=== PATIENT | female | born 1965 | race Caucasian/White ===

== ENCOUNTER → 2025-08-10 | Outpatient (CLI) | payer BC, SELFPAY ==
--- NOTE | 2025-08-10 17:14 | RAD_ITS ---
PROCEDURE: CERV SPINE 4 OR 5 VIEWS 08/10/2025 REASON FOR EXAM: RIGHT SIDED PAIN X 2 DAYS TECHNIQUE: Procedure Code: [facility] Modality: DX Procedure: CERV SPINE 4 OR 5 VIEWS COMPARISON: None. FINDINGS: BONES: No fracture or focal osseous lesion. Anatomic spinal alignment. Mild reversal of the normal cervical lordosis. DISC/DEGENERATIVE CHANGES: Moderate C4-C5 and C5-C6 disc space narrowing. Multilevel vertebral endplate osteophytes. Bony narrowing of the C5-C6 and C6-C7 neural foramen bilaterally. SOFT TISSUES: No acute abnormality seen. RAD/Cerv Spine 4 or 5 Views IMPRESSION: 1. No acute osseous abnormality. 2. Mild reversal of the cervical lordosis, may reflect muscle spasm. 3. Degenerative changes of the spine. Reading Location: [id number]
--- OUTSIDE RECORDS SUMMARY | 2025-08-10 17:33 | XMS RPT_ITS | CCD ---
Author Organization [facility] Care Team Providers Care Security Consultant Name Role Phone Ray Frausto Unavailable Unavailable Bellante, Ray Unavailable Unavailable Teriante, Ray Unavailable Unavailable Teriante Ray Primary Care Provider Ray Frausto Primary Care Provider [phone] Ray Frausto MD Primary Care Provider PAT DIAZ Attending Unavailable RITA LUCIA Referring Unavailable MD BERNABE MICHAEL Admitting Unavailable NAVNEET MICHEL Primary Care Unavailable RAY FRAUSTO MD Attending Unavailable NO FAMILY PHYSICIAN, 837 Primary Care Unavail able NO FAMILY PHYSICIAN, 837 Primary Care Unavail able RAY FRAUSTO MD Attending Unavailable RAY FRAUSTO MD Admitting Unavailable RAY FRAUSTO MD Attending Unavailable NO FAMILY PHYSICIAN, 837 Primary Care Unavail able NO FAMILY PHYSICIAN, 837 Primary Care Unavail able RAY FRAUSTO MD Attending Unavailable RAY FRAUSTO MD Attending Unavailable NO FAMILY PHYSICIAN, 837 Primary Care Unavail able RAY FRAUSTO MD Attending Unavailable NO FAMILY PHYSICIAN, 837 Primary Care Unavail able IAN SMITH Attending Unavail able NO FAMILY PHYSICIAN, 837 Primary Care Unavail able RAY FRAUSTO MD Attending Unavailable NO FAMILY PHYSICIAN, 837 Primary Care Unavail able NO FAMILY PHYSICIAN, 837 Primary Care Unavail able NO FAMILY PHYSICIAN, 837 Primary Care Unavail able NO FAMILY PHYSICIAN, 837 Primary Care Unavail able NO FAMILY PHYSICIAN, 837 Primary Care Unavail able NO FAMILY PHYSICIAN, 837 Primary Care Unavail able NO FAMILY PHYSICIAN, 837 Primary Care Unavail able RAY FRAUSTO MD Attending Unavailable NO FAMILY PHYSICIAN, 837 Primary Care Unavail able RAY FRAUSTO MD Attending Unavailable NO FAMILY PHYSICIAN, 837 Primary Care Unavail able NO FAMILY PHYSICIAN, 837 Primary Care Unavail able RAY FRAUSTO MD Attending Unavailable RAY FRAUSTO MD Attending Unavailable NO FAMILY PHYSICIAN, 837 Primary Care Unavail able RAY FRAUSTO MD Attending Unavailable NO FAMILY PHYSICIAN, 837 Primary Care Unavail able RAY FRAUSTO MD Attending Unavailable NO FAMILY PHYSICIAN, 837 Primary Care Unavail able RAY FRAUSTO MD Attending Unavailable NO FAMILY PHYSICIAN, 837 Primary Care Unavail able Ray Frausto MD Primary Care Provider RAY FRAUSTO MD Attending Unavailable NO FAMILY PHYSICIAN, 837 Primary Care Unavail able RAY FRAUSTO Referring Unavailable RAY FRAUSTO Attending Unavailable RAY FRAUSTO Primary Care Unavailable Assessment, Health Risk Attending Unavaila [facility] Care Physician, No Primary Primary Care Unava ilable Allergies Allergy Classification Reported Allergen(s) Allergy Type Date of Onset Reaction(s) Facility (2 sources) Penicillins; Translations: [PENICILLINS] Propensity to adverse reactions to drug (disorder) 1 [facility] Other [place] [facility] Problems Problem Classification Problem Date Documented Da te Episodic/Chronic Benign neoplasm of uterus (1 source) Leiomyoma of uterus, unspecified; Translations: [Uterine leiomyoma, unspecified location] Onset: 03-09-2023 Episodic Deficiency and other anemia (1 source) Anemia, unspecified; Translations: [Symptomatic anemia] Onset: 03-09-2023 Episodic Other female genital disorders (1 source) Other specified abnormal uterine and vaginal bleeding; Translations: [Dysfunctional uterine bleeding] Onset: 03-09-2023 Chronic Unclassified (13 sources) Encounter for screening mammogram for malignant neoplasm of breast; Translations: [Patient encounter status] Onset: 01-03-2018 Episodic Unclassified (2 sources) Other contact with and (suspected) exposures hazardous to health; Translations: [Oth contact w and (suspected) exposures hazardous to health] Onset: 01-03-2018 Episodic Results Test Name Value Interpretation Reference Range Facility Glucoseon 07-15-2025 Glucose [Mass/Vol] 106 mg/dL High 70-99 [facility] Comment on above: Performed By: #### L 500.4100, L501.0100 #### [facility] [address] [place], [address] Lipid Profileon 07-15-2025 CHOL:HDL 2.84 Normal [facility] Comment on above: Performed By: #### L 500.4100, L501.0100 #### [facility] [address] [place], [address] Cholesterol [Mass/Vol] 229 mg/dL High <=200 [facility] Comment on above: Result Comment: Chol esterol level, Desirable <200 mg/dL Borderline high cholesterol 200-239 mg/dL High cholesterol >=240 mg/dL Recommendations of the NCEP Adult Treatment Panel for the following risk-cutoff thresholds for the [place] population. Performed By: #### L 500.4100, L501.0100 #### [facility] [address] [place], [address] Cholesterol in HDL [Mass/Vol] 81 mg/dL Normal [facility] Comment on above: Result Comment: Rosa onal Cholesterol Education Program (NCEP) guidelines: <40 mg/dL: Low HDL-cholesterol (major risk factor for CHD) >= 60 mg/dL: High HDL-cholesterol (negative risk factor for CHD) HDL-cholesterol is affected by a number of factors, e.g. smoking, exercise, hormones, sex and age. Performed By: #### L 500.4100, L501.0100 #### [facility] [address] [place], [address] Cholesterol in LDL [Mass/Vol] 126 mg/dL Normal [facility] Comment on above: Result Comment: Bord cffllt=222-955 mg/dL Higher Ivqx=967 mg/dL or greater Friedwald Equation for LDL-C Performed By: #### L 500.4100, L501.0100 #### [facility] [address] [place], [address] Cholesterol in VLDL [Mass/Vol] 22 mg/dL Normal 5-40 [facility] Comment on above: Performed By: #### L 500.4100, L501.0100 #### [facility] [address] [place], [address] Triglyceride [Mass/Vol] 112 mg/dL Normal [facility] Comment on above: Result Comment: The drugs N-Acetylcysteine and Metamizole may falsely depress this assay. Normal range: <150 mg/dL Borderline High: 150-199 mg/dL High: 200-499 mg/dL Very High: >500 mg/dL Performed By: #### L 500.4100, L501.0100 #### [facility] [address] [place], [address] DBT Breast - bilateral preeti davis 01-13-2025 No mammographic evidence of malignancy. ASSESSMENT: Category 1 Negative RECOMMENDATION: Routine screening mammogram in 1 year. Bilateral CANCER RISK ASSESSMENT: This risk assessment is based on patient provided information collected in a risk survey taken at the time of this examination. LIFETIME BREAST CANCER RISK: Gillian 8: 18.13% - If greater than or equal to 20%, consider annual mammogram and annual screening Breast MRI or follow up in high risk clinic. Is the patient at elevated risk based on the HBOC criteria? No (Hereditary Breast and Ovarian Cancer) - If Yes, consider genetic counseling and testing with high risk follow up Is the patient at elevated risk based on the Stephens Syndrome criteria? No - If Yes, consider genetic counseling and testing with high risk follow up. Report Dictated on Electronically Signed By: Kehinde Sung MD Electronically Signed Date/Time: 01/13/2025 8:35 AM [facility] Patient Name: MARY JO NORIEGA : 1965 [facility]#: [id number] Exam Date/Time: 01/13/2025 08:08 Procedure: BI MAMMOGRAM SCREENING TOMOSYNTHESIS BILATERAL Ordering Provider: FRAUSTO ANITA Reason For Exam: This exam was performed at [facility] [address] [facility] [address] [facility] [address] PATIENT CANCER HISTORY: No Personal History of Cancer FAMILY CANCER HISTORY: Maternal Aunt Breast Cancer age 51 Image views: 2D Bilateral CC and MLO views were acquired. 3D Bilateral CC and MLO views were acquired. Images were reviewed with CAD. Markings on images: BB's = Nipples; skin lesions Open [place] = Palpable Line = Scar COMPARISON: 2023; 2020 TISSUE DENSITY: BIRADS B - There are scattered areas of fibroglandular density. FINDINGS: No suspicious masses, architectural distortions or suspiciously clustered microcalcifications are identified. There are no significant changes when compared with prior studies. [facility] Kehinde Sung MD - 01/13/2025 [facility] Name[facility] 1965 [id number] Exam Date/Time: 01/13/2025 08:08 Procedure: BI MAMMOGRAM SCREENING TOMOSYNTHESIS BILATERAL Ordering Provider: FRAUSTO ANITA Reason For Exam: This exam was performed at [facility] [address] [facility] [address] PATIENT CANCER HISTORY: No Personal History of Cancer FAMILY CANCER HISTORY: Maternal Aunt Breast Cancer age 51 Image views: 2D Bilateral CC and MLO views were acquired. 3D Bilateral CC and MLO views were acquired. Images were reviewed with CAD. Markings on images: BB's = Nipples; skin lesions Open [place] = Palpable Line = Scar COMPARISON: 2023; 2022; 2020 TISSUE DENSITY: BIRADS B - There are scattered areas of fibroglandular density. FINDINGS: No suspicious masses, architectural distortions or suspiciously clustered microcalcifications are identified. There are no significant changes when compared with prior studies. IMPRESSION: No mammographic evidence of malignancy. ASSESSMENT: Category 1 Negative RECOMMENDATION: Routine screening mammogram in 1 year. Bilateral CANCER RISK ASSESSMENT: This risk assessment is based on patient provided information collected in a risk survey taken at the time of this examination. LIFETIME BREAST CANCER RISK: Gillian 8: 18.13% - If greater than or equal to 20%, consider annual mammogram and annual screening Breast MRI or follow up in high risk clinic. Is the patient at elevated risk based on the HBOC criteria? No (Hereditary Breast and Ovarian Cancer) - If Yes, consider genetic counseling and testing with high risk follow up Is the patient at elevated risk based on the Stephens Syndrome criteria? No - If Yes, consider genetic counseling and testing with high risk follow up. Report Dictated on Electronically Signed By: Kehinde Sung MD Electronically Signed Date/Time: 01/13/2025 8:35 AM EDT [facility] Radiology Study observation (narrative) [facility] DBT Breast - bilateral scree ningOrdered By: Kehinde Sung on 01-13-2025 [facility] Work Phone: [facility] Physician Progress No kiel 09-16-2024 [facility] Physician Progress Note MARY JO HORN :1965 Registration Date:09/16/2024 Assessment/Plan This Visit Diagnosis 1. Encounter for well woman exam Z01.419 Ordered: AMB Preventive Est Age 40-64 [address], 09/16/2024 07:51:00 EST, Encounter for well woman exam / Breast cancer screening by mammogram / History of hysterectomy 2. Breast cancer screening by mammogram Z12.31 Ordered: AMB Preventive Est Age 40-64 [address], 09/16/2024 07:51:00 EST, Encounter for well woman exam / Breast cancer screening by mammogram / History of hysterectomy MAMM DIGITAL SCRN BILATERAL, 01/09/2025, Routine, SCREENING, Bed, Isolation Precautions: NONE, Breast cancer screening by mammogram 3. History of hysterectomy Z90.710 Ordered: AMB Preventive Est Age 40-64 [address], 09/16/2024 07:51:00 EST, Encounter for well woman exam / Breast cancer screening by mammogram / History of hysterectomy Chief Complaint Here for an annual exam - Hyst no refills, no concerns, needs rx for mammo History of Present Illness No issue since hysterectomy. Occasional hot flushes. Doing well overall. Physical Exam Vitals & Measurements BP: 120/78 HT: 165 cm WT: 82.1 kg BMI: 30.16 Depression Screening Scores Initial Depression Screen Score: 0 (09/16/24 07:44:00) Fall Risk Assessment Is the patient ambulatory (mobile): Yes (09/16/24 07:44:00) Have you had a fall within the past: No (09/16/24 07:44:00) Have you had 2 or more falls in the past: No (09/16/24 07:44:00) The vital signs were reviewed and are normal. General appearance: well developed and well nourished Lungs: Normal respiratory effort Extremities: no edema Psychiatric: Mood: normal OUTPATIENT RECEPTIONIST: Vital signs reviewed External genitalia: normal, no lesions Urethra: normal meatus Vagina: normal no lesions, scant discharge, vault normal Cervix: absent Uterus: absent Adnexa: normal Cul de sac: normal Perineum: no hemorrhoids, masses or warts noted Breasts: no masses, no tenderness or skin changes OUTPATIENT RECEPTIONIST Additional Details Menstrual History Menstrual StatusHysterectomy OUTPATIENT RECEPTIONIST Screening Date of Last Pap Smear 12/06/21 Last Pap Result, Pt StatedNegative Last Pap Result CommentNeg HPV Date of Last Mammogram, Pt Stated01/10/24 Last Mammography Result, Pt StatedBenign Contraception Contraception MethodSterilization for contraception Sterilization TypeHysterectomy OB History History (1,0,0,1) # 1 Baby 1 Outcome Date: 11/2001 Outcome or Result: Vaginal Gest Age: Fullterm Outcome: Live Sex: Male Wt: 3175 g Hospital: Dr. Salazar, Problem List/Past Medical History Ongoing Anemia BMI 31.0-31.9,adult Historical Procedure/Surgical History Attempted LAVH, COLUMBA, bilateral salpingectomy: 05/17/23 Last Pap Neg w/Neg NPV: 12/06/21 Colonoscopy - Normal, rpt 10 yrs: 03/2021 [place] teeth Ovarian Cystectomy: RAY FRAUSTO MD, FACOG Allergies penicillin Vomiting Social History Alcohol Use:Current Frequency:1-2 times per week Sexual Sexually active:Yes Uses condoms:Yes Other contraceptive use:HYST Substance Abuse - Denies Substance Abuse Tobacco Use:Never (less than 100 in lifetime) Family History Breast cancer..: Aunt. Health Status Family Member(s) [facility] Ambulatory Clinical Summaryo n 09-16-2024 Ambulatory Clinical Summary MARY JO HORN :1965 Registration Date:09/16/2024 Ambulatory Visit Instructions Your Diagnosis Encounter for well woman exam Breast cancer screening by mammogram History of hysterectomy Your Care Team Attending Physician - RAY FRAUSTO MD, FACOG Primary Care Physician - NO FAMILY PHYSICIAN, 837 Procedures Performed Attempted LAVH, COLUMBA, bilateral salpingectomy (05/17/2023) Last Pap Neg w/Neg NPV (12/06/2021) Colonoscopy - Normal, rpt 10 yrs (03/2021) Ovarian Cystectomy [place] teeth Discharge Vitals Blood Pressure 120/78 Height 64.96 in (165 cm) Weight 181.03 lb (82.1 kg) BMI 30.16 Systolic Blood Pressure: 120 mmHg (09/16/24 07:44:00) Diastolic Blood Pressure: 78 mmHg (09/16/24 07:44:00) Mean Arterial Pressure: 92 mmHg (09/16/24 07:44:00) Height/Length Measured: 165 cm (09/16/24 07:44:00) Weight Measured: 82.1 kg (09/16/24 07:44:00) Body Mass Index Measured: 30.16 kg/m2 (09/16/24 07:44:00) Ht/Wt Measurement Refused by Patient?2: No (09/16/24 07:44:00) What to do next Scheduled Follow-Up Appointments No results You Need to Schedule the Following Appointments MAMM DIGITAL SCRN BILATERAL, 01/09/2025, Routine, SCREENING, Bed, Isolation Precautions: NONE, Breast cancer screening by mammogram Allergies penicillin Vomiting Problems Ongoing - Any problem that you are currently receiving treatment for. Anemia BMI 31.0-31.9,adult Common Emergency Awareness Tips IS IT A STROKE? Act FAST and Check for these signs: FACE Does the face look uneven? ARM Does one arm drift down? SPEECH Does their speech sound strange? TIME Call at any sign of stroke Heart Attack Signs Chest discomfort: Most heart attacks involve discomfort in the center of the chest and lasts more than a few minutes, or goes away and comes back. It can feel like uncomfortable pressure, squeezing, fullness or pain. Discomfort in upper body: Symptoms can include pain or discomfort in one or both arms, back, neck, jaw or stomach. Shortness of breath: With or without discomfort. Other signs: Breaking out in a cold sweat, nausea, or lightheaded. Remember, MINUTES DO MATTER. If you experience any of these heart attack warning signs, call to get immediate medical attention! [facility] Comprehensive Intake - Texto n 09-16-2024 Comprehensive Intake - Text Comprehensive Intake Entered On: 09/16/2024 7:46 EST Performed On: 09/16/2024 7:44 EST by Felicia Stern Summary Chief Complaint : Here for an annual exam - Hyst no refills, no concerns, needs rx for mammo Felicia Stern 09/16/2024 7:50 EST Advance Directive : No Menstrual Status : Hysterectomy Bladder Control Issues? : No Urine Leakage? : No Presence or absence of urinary incontinence assessed : Yes CPT-II Medication list doc'd in medical record : Yes Felicia Stern 09/16/2024 7:44 EST Influenza immunization administered or previously received : Yes Felicia Stern 09/16/2024 7:50 EST Pneumococcal vaccine administered or previously received : No Felicia Stern 09/16/2024 7:44 EST Measurements Ht/Wt Measurement Refused by Patient? : No Felicia Stern 09/16/2024 7:44 EST Weight Measured : 82.1 kg(Converted to: 181 lb 0 oz, 181.000 lb) Felicia Stern 09/16/2024 7:50 EST Height/Length Measured : 165 cm(Converted to: 5 ft 5 in, 64.96 in) Felicia Stern 09/16/2024 7:44 EST Body Mass Index Measured : 30.16 kg/m2 Felicia Stern 09/16/2024 7:50 EST Body Mass Index documented : Yes Felicia Stern 09/16/2024 7:44 EST Vitals Systolic Blood Pressure : 120 mmHg Diastolic Blood Pressure : 78 mmHg Mean Arterial Pressure : 92 mmHg Last Systolic BP : less than 130 mmHg Last Diastolic BP : less than 80 mmHg Felicia Stern 09/16/2024 7:50 EST Require BP : Yes Pain Present : No actual or suspected pain Pain : 0 Pain severity quantified : No pain present Felicia Stern 09/16/2024 7:44 EST Infection Screening Travel outside [place] within past 21 days : No Positive COVID test in the last 10 days? : No Exposure to and/or close contact with a person who has a laboratory-confirmed COVID test within the last 48 hours. : No Felicia Stern 09/16/2024 7:44 EST Depression Screening Is patient currently : None of the Below Feeling Down, Depressed, Hopeless : Not at all Little Interest - Pleasure in Activities : Not at all Initial Depression Screen Score : 0 Depression Screening Score 0 : No Ezequiel Sterna - 09/16/2024 7:44 EST Falls Risk Assessment Is the patient ambulatory (mobile) : Yes Have you had 2 or more falls in the past year : No Have you had a fall within the past year that has caused an injury : No Patient screen for fall risk : no falls in last year OR 1 fall with no injury in last year Ezequiel Sternhbumi Castro 09/16/2024 7:44 EST [facility] OUTPATIENT RECEPTIONIST Visit - Texton OUTPATIENT RECEPTIONIST Visit - Text OUTPATIENT RECEPTIONIST Visit Entered On : 09/16/2024 7:47 EST Performed On: 09/16/2024 7:46 EST by Felicia Stern OUTPATIENT RECEPTIONIST Menstrual History Menstrual Status : Hysterectomy Felicia Stern 09/16/2024 7:46 EST OUTPATIENT RECEPTIONIST Screenings Date of Last Pap Smear : 12/06/21 Last Pap Result : Negative Last Pap Result Comment : Neg HPV Leena Felicia - 09/16/2024 7:46 EST Date of Last Mammogram : 01/10/24 Felicia Stern 09/16/2024 7:53 EST Last Mammography Result : Benign Felicia Stern 09/16/2024 7:46 EST Contraception Contraception Method : Sterilization for contraception Sterilization Type : Hysterectomy Felicia Stern 09/16/2024 7:46 EST [facility] DBT Breast - bilateral scree drewgon 01-10-2024 No mammographic evidence of malignancy. ASSESSMENT: Category 1 Negative RECOMMENDATION: Routine screening mammogram in 1 year. Bilateral CANCER RISK ASSESSMENT: This risk assessment is based on patient provided information collected in a risk survey taken at the time of this examination. LIFETIME BREAST CANCER RISK: [place]andon[place]: 18.36% - If greater than or equal to 20%, consider annual mammogram and annual screening Breast MRI or follow up in high risk clinic. Is the patient at elevated risk based on the HBOC criteria? No (Hereditary Breast and Ovarian Cancer) - If Yes, consider genetic counseling and testing with high risk follow up. Is the patient at elevated risk based on the Stephens Syndrome criteria? No - If Yes, consider genetic counseling and testing with high risk follow up. Report Dictated on Workstation: [id number] Electronically Signed By: Laura Jones MD Electronically Signed Date/Time: 01/10/2024 10:25 AM EDT [facility] Name[facility] JO [facility] 1965 [id number] Exam Date/Time: 01/10/2024 08:54 Procedure: BI MAMMOGRAM SCREENING TOMOSYNTHESIS BILATERAL Ordering Provider: FRAUSTO ANITA Reason For Exam: z12.31 Image views: 2D Bilateral CC and MLO views were acquired. 3D Bilateral CC and MLO views were acquired. Images were reviewed with CAD. Markings on images: BB's = Nipples; skin lesions Open [place] = Palpable Line = Scar COMPARISON: 09/01/2021, 11/30/2022 TISSUE DENSITY: BIRADS B - There are scattered fibroglandular densities. FINDINGS: No suspicious masses, architectural distortions or suspiciously clustered microcalcifications are identified. There is no evidence of skin thickening or nipple retraction. There are no significant changes when compared with prior studies. [facility] Laura Jones MD - 01/10/2024 Patient Name: MARY JO HORN [facility] 1965 [id number] Exam Date/Time: 01/10/2024 08:54 Procedure: BI MAMMOGRAM SCREENING TOMOSYNTHESIS BILATERAL Ordering Provider: FRAUSTO ANITA Reason For Exam: z12.31 Image views: 2D Bilateral CC and MLO views were acquired. 3D Bilateral CC and MLO views were acquired. Images were reviewed with CAD. Markings on images: BB's = Nipples; skin lesions Open [place] = Palpable Line = Scar COMPARISON: 09/01/2021, 11/30/2022 TISSUE DENSITY: BIRADS B - There are scattered fibroglandular densities. FINDINGS: No suspicious masses, architectural distortions or suspiciously clustered microcalcifications are identified. There is no evidence of skin thickening or nipple retraction. There are no significant changes when compared with prior studies. IMPRESSION: No mammographic evidence of malignancy. ASSESSMENT: Category 1 Negative RECOMMENDATION: Routine screening mammogram in 1 year. Bilateral CANCER RISK ASSESSMENT: This risk assessment is based on patient provided information collected in a risk survey taken at the time of this examination. LIFETIME BREAST CANCER RISK: Gillian: 18.36% - If greater than or equal to 20%, consider annual mammogram and annual screening Breast MRI or follow up in high risk clinic. Is the patient at elevated risk based on the HBOC criteria? No (Hereditary Breast and Ovarian Cancer) - If Yes, consider genetic counseling and testing with high risk follow up. Is the patient at elevated risk based on the Stephens Syndrome criteria? No - If Yes, consider genetic counseling and testing with high risk follow up. Report Dictated on Workstation: [id number] Electronically Signed By: Laura Jones MD Electronically Signed Date/Time: 01/10/2024 10:25 AM EDT [facility] Study observation (narrative) [facility] DBT Breast - bilateral scree ningOrdered By: Laura Jones on 01-10-2024 [facility] Work Phone: Phone Msgon 01-10-2024 Phone Msg - From: CHELE WILLIAMSON CNP To: MARY JO HORN Sent: 01/10/2024 13:37:16 EDT Subject: normal mammogram Mary Jo, Your mammogram from today is normal. Have a great day! Chele Williamson CNP [facility] Basic metabolic 2000 panelon 03-09-2023 Anion gap [Moles/Vol] 13 mmol/L Normal 9-18 [facility] Comment on above: Order Comment: Tom sampson Type: BLOOD SPECIMEN Ordering Facility: [facility] Address: [address] [address] Performed By: #### 2 4321-2 #### [facility] CLIA [id number] [address] [place] [address] [place] Calcium [Mass/Vol] 8.9 mg/dL Normal 8.5-10.2 [facility] Comment on above: Order Comment: Tom sampson Type: BLOOD SPECIMEN Ordering Facility: [facility] Address: [address] [address] Performed By: #### 2 4321-2 #### [facility] CLIA [id number] [address] Chloride [Moles/Vol] 105 mmol/L Normal 97-105 [facility] Comment on above: Order Comment: Speci men Type: BLOOD SPECIMEN [facility] [facility] Address: [address] [place] [address] Performed By: #### 2 4321-2 #### [facility] CLIA [id number] [address] CO2 [Moles/Vol] 21 mmol/L Low 22-30 [facility] Comment on above: Order Comment: Speci men Type: BLOOD SPECIMEN Ordering Facility: [facility] Address: [address] [place] [address] Performed By: #### 2 4321-2 #### [facility] CLIA [id number] [address] Creatinine [Mass/Vol] 0.74 mg/dL Normal 0.58-0.96 [facility] Comment on above: Order Comment: Speci men Type: BLOOD SPECIMEN Ordering Facility: [facility] Address: [address] [place] [address] Performed By: #### 2 4321-2 #### [facility] CLIA [id number] [address] ESTIMATED GLOMERULAR FILTRATION RATE 96 mL/min/1.73m??? Normal >=60 [facility] Comment on above: Order Comment: Speci men Type: BLOOD SPECIMEN Ordering Facility: [facility] Address: [address] [place] [address] Result Comment: Meenakshi mated Glomerular Filtration Rate (eGFR) is calculated using the 2020 CKD-EPI creatinine equation. This equation utilizes serum creatinine, sex, and age as parameters. The creatinine assay has traceable calibration to isotope dilution-mass spectrometry. Refer to KDIGO guidelines for clinical interpretation. In patients with unstable renal function, e.g. those with acute kidney injury, the eGFR may not accurately reflect actual GFR. Performed By: #### 2 4321-2 #### [facility] CLIA [id number] [address] [place] [address] [place] Glucose [Mass/Vol] 103 mg/dL High 74-99 [facility] Comment on above: Order Comment: Tom sampson Type: BLOOD SPECIMEN Ordering Facility: [facility] Address: [address] [place] [address] Result Comment: The [place] [employer] (ADA) provides guidance for cutoff values for fasting glucose and random glucose. The ADA defines fasting as no caloric intake for at least 8 hours. Fasting plasma glucose results between 100 to 125 mg/dL indicate increased risk for diabetes (prediabetes). Fasting plasma glucose results greater than or equal to 126 mg/dL meet the criteria for diagnosis of diabetes. In the absence of unequivocal hyperglycemia, results should be confirmed by repeat testing. In a patient with classic symptoms of hyperglycemia or hyperglycemic crisis, random plasma glucose results greater than or equal to 200 mg/dL meet the criteria for diagnosis of diabetes. Reference: Standards of Medical Care in Diabetes 2016, [place] [employer]. Diabetes Care. 2016.39(Suppl 1). Performed By: #### 2 4321-2 #### [facility] CLIA [id number] [address] [place] [address] [place] Potassium [Moles/Vol] 3.8 mmol/L Normal 3.7-5.1 [facility] Comment on above: Order Comment: Tom sampson Type: BLOOD SPECIMEN Ordering Facility: [facility] Address: [address] [place] [address] Performed By: #### 2 4321-2 #### [facility] CLIA [id number] [address] [place] [address] [place] Sodium [Moles/Vol] 139 mmol/L Normal 136-144 [facility] Comment on above: Order Comment: Tom sampson Type: BLOOD SPECIMEN Ordering Facility: [facility] Address: [address] [place] [address] Performed By: #### 2 4321-2 #### [facility] CLIA [id number] [address] [place] [address] [place] Urea nitrogen [Mass/Vol] 9 mg/dL Normal 7-21 [facility] Comment on above: Order Comment: Tom sampson Type: BLOOD SPECIMEN Ordering Facility: [facility] Address: [address] [address] Performed By: #### 2 4321-2 #### [facility] CLIA [id number] [address] [place] [address] [place] CBC W Auto Differential pane l (Bld)on 03-09-2023 Basophils (Bld) [#/Vol] 0.06 10*3/uL Normal <0.11 [facility] Comment on above: Order Comment: Speci men Type: BLOOD SPECIMEN Ordering Facility: [facility] Address: [address] [address] Performed By: #### 5 7021-8 #### [facility] CLIA [id number] [address] [place] Basophils/100 WBC (Bld) 0.8 % Normal [facility] Comment on above: Order Comment: Speci men Type: BLOOD SPECIMEN Ordering Facility: [facility] Address: [address] [place] [address] Performed By: #### 5 7021-8 #### [facility] CLIA [id number] [address] STATES [facility] Differential cell count method Nom (Bld) Auto Normal [facility] Comment on above: Order Comment: Speci men Type: BLOOD SPECIMEN Ordering Facility: [facility] Address: [address] [place] [address] Performed By: #### 5 7021-8 #### [facility] CLIA [id number] [address] [place] [address] [place] Eosinophils (Bld) [#/Vol] 0.18 10*3/uL Normal <0.46 [facility] Comment on above: Order Comment: Speci men Type: BLOOD SPECIMEN Ordering Facility: [facility] Address: [address] [place] [address] Performed By: #### 5 7021-8 #### [facility] CLIA [id number] [address] [place] Eosinophils/100 WBC (Bld) 2.5 % Normal [facility] Comment on above: Order Comment: Speci men Type: BLOOD SPECIMEN Ordering Facility: [facility] Address: [address] [address] Performed By: #### 5 7021-8 #### [facility] CLIA [id number] [address] Erythrocyte distribution width (RBC) [Ratio] 24.1 % High 11.5-15.0 [facility] Comment on above: Order Comment: Speci men Type: BLOOD SPECIMEN Ordering Facility: [facility] Address: [address] [address] Performed By: #### 5 7021-8 #### [facility] CLIA [id number] [address] Hematocrit (Bld) [Volume fraction] 25.6 % Low 36.0-46.0 [facility] Comment on above: Order Comment: Speci men Type: BLOOD SPECIMEN Ordering Facility: [facility] Address: [address] [address] Performed By: #### 5 7021-8 #### [facility] CLIA [id number] [address] [place] Hemoglobin (Bld) [Mass/Vol] 7.6 g/dL Low 11.5-15.5 [facility] Comment on above: Order Comment: Speci men Type: BLOOD SPECIMEN Ordering Facility: [facility] Address: [address] [place] [address] Performed By: #### 5 7021-8 #### [facility] CLIA [id number] [address] [place] Immature granulocytes (Bld) [#/Vol] 10*3/uL Normal <0.10 [facility] Comment on above: Order Comment: Speci men Type: BLOOD SPECIMEN Ordering Facility: [facility] Address: [address] [address] Performed By: #### 5 7021-8 #### [facility] CLIA [id number] [address] Immature granulocytes/100 WBC (Bld) 0.3 % Normal [facility] Comment on above: Order Comment: Speci men Type: BLOOD SPECIMEN Ordering Facility: [facility] Address: [address] [address] Performed By: #### 5 7021-8 #### [facility] CLIA [id number] [address] Lymphocytes (Bld) [#/Vol] 2.16 10*3/uL Normal 1.00-4.00 [facility] Comment on above: Order Comment: Speci men Type: BLOOD SPECIMEN Ordering Facility: [facility] Address: [address] [address] Performed By: #### 5 7021-8 #### [facility] CLIA [id number] [address] Lymphocytes/100 WBC (Bld) 29.5 % Normal [facility] Comment on above: Order Comment: Speci men Type: BLOOD SPECIMEN Ordering Facility: [facility] Address: [address] [place] [address] Performed By: #### 5 7021-8 #### [facility] CLIA [id number] [address] MCH (RBC) [Entitic mass] 20.9 pg Low 26.0-34.0 [facility] Comment on above: Order Comment: Speci men Type: BLOOD SPECIMEN Ordering Facility: [facility] Address: [address] [place] [address] Performed By: #### 5 7021-8 #### [facility] CLIA [id number] [address] MCHC (RBC) [Mass/Vol] 29.7 g/dL Low 30.5-36.0 [facility] Comment on above: Order Comment: Speci men Type: BLOOD SPECIMEN Ordering Facility: [facility] Address: [address] [place] [address] Performed By: #### 5 7021-8 #### [facility] CLIA [id number] [address] MCV (RBC) [Entitic vol] 70.3 fL Low 80.0-100.0 [facility] Comment on above: Order Comment: Speci men Type: BLOOD SPECIMEN Ordering Facility: [facility] Address: [address] [address] Result Comment: rece ived blood Performed By: #### 5 7021-8 #### [facility] CLIA [id number] [address] [place] Monocytes (Bld) [#/Vol] 0.73 10*3/uL Normal <0.87 [facility] Comment on above: Order Comment: Speci men Type: BLOOD SPECIMEN Ordering Facility: [facility] Address: [address] [address] Performed By: #### 5 7021-8 #### [facility] CLIA [id number] [address] Monocytes/100 WBC (Bld) 10.0 % Normal [facility] Comment on above: Order Comment: Speci men Type: BLOOD SPECIMEN Ordering Facility: [facility] Address: [address] [address] Performed By: #### 5 7021-8 #### [facility] CLIA [id number] [address] [place] [address] [place] Neutrophils (Bld) [#/Vol] 4.17 10*3/uL Normal 1.45-7.50 [facility] Comment on above: Order Comment: Speci men Type: BLOOD SPECIMEN Ordering Facility: [facility] Address: [address] [address] Performed By: #### 5 7021-8 #### [facility] CLIA [id number] [address] [place] Neutrophils/100 WBC (Bld) 56.9 % Normal [facility] Comment on above: Order Comment: Speci men Type: BLOOD SPECIMEN Ordering Facility: [facility] Address: [address] [place] [address] Performed By: #### 5 7021-8 #### [facility] CLIA [id number] [address] [place] [address] [facility] [place] Nucleated RBC (Bld) [#/Vol] 10*3/uL Normal <0.01 [facility] Comment on above: Order Comment: Speci men Type: BLOOD SPECIMEN Ordering Facility: [facility] Address: [address] [address] Performed By: #### 5 7021-8 #### [facility] CLIA [id number] [address] Nucleated RBC/100 WBC (Bld) [Ratio] 0.0 /100 WBC Normal [facility] Comment on above: Order Comment: Speci men Type: BLOOD SPECIMEN Ordering Facility: [facility] Address: [address] [address] Performed By: #### 5 7021-8 #### [facility] CLIA [id number] [address] Platelet mean volume (Bld) [Entitic vol] 9.3 fL Normal 9.0-12.7 [facility] Comment on above: Order Comment: Speci men Type: BLOOD SPECIMEN Ordering Facility: [facility] Address: [address] [address] Performed By: #### 5 7021-8 #### [facility] CLIA [id number] [address] Platelets (Bld) [#/Vol] 349 10*3/uL Normal 150-400 [facility] Comment on above: Order Comment: Speci men Type: BLOOD SPECIMEN Ordering Facility: [facility] Address: [address] [address] Performed By: #### 5 7021-8 #### [facility] CLIA [id number] [address] [place] RBC (Bld) [#/Vol] 3.64 10*6/uL Low 3.90-5.20 [facility] Comment on above: Order Comment: Speci men Type: BLOOD SPECIMEN Ordering Facility: [facility] Address: [address] [address] Performed By: #### 5 7021-8 #### [facility] CLIA [id number] [address] [place] WBC (Bld) [#/Vol] 7.32 10*3/uL Normal 3.70-11.00 [facility] Comment on above: Order Comment: Speci men Type: BLOOD SPECIMEN Ordering Facility: [facility] Address: [place] [address] Performed By: #### 5 7021-8 #### [facility] CLIA [id number] [address] [place] [address] [facility] ED NOTEon 03-09-2023 ED NOTE HNO ID: [id number] Author: Vlad Stacy RN Service: Nursing Author Type: Registered Nurse Type: ED Notes Filed: 03/09/2023 5:29 AM Note Text: Dr. Diaz rounded on patient at this time. Patient results of testing, imaging, and discharge plan of care was discussed by provider at this time. Patient is agreeable to discharge plan of care at this time. This RN provided discharge instructions and follow up care instructions to patient at discharge. Patient verbalized understanding of all discharge teaching. VS are stable. Patient IV removed. Patient was discharged in stable condition with ride home from . [facility] ED NOTE HNO ID: [id number] Author: Vlad Stacy RN Service: Nursing Author Type: Registered Nurse Type: ED Notes Filed: 03/08/2023 11:20 PM Note Text: Patient presents to ED from [place] ED for vaginal bleeding with low HGB of 5.2. Patient reports associated dizziness/light headedness. Patient presents for blood transfusion. ST on monitor at 105. SBP stable. IV in place on arrival to ED. [facility] ED NOTE HNO ID: [id number] Author: Chanel Lamb RN Service: ? Author Type: Registered Nurse Type: ED Notes Filed: 03/08/2023 11:09 PM Note Text: Bed: ED-05 Expected date: Expected time: Means of arrival: Comments: [facility] ED NOTE HNO ID: [id number] Author: Isabel Richardson RN Service: Emergency Medicine Author Type: Registered Nurse Type: ED Notes Filed: 03/08/2023 10:29 PM Note Text: IV site wrapped with gauze. Instructions given to go straight to [facility] ER. Normal [facility] ED PROV NOTEon 03-09-2023 ED PROV NOTE HNO ID: [id number] Author: Pat Diza MD Service: ? Author Type: Physician Type: ED Provider Notes Filed: 03/09/2023 6:04 AM Note Text: ED Provider Note Patient Name: Mary Jo Horn : 1965 SERVICE DATE: 03/08/23 History Patient presents with: Vaginal Bleeding Blood Test Abnormality: HGB 5.2 Patient presents as a transfer from [place] emergency department for symptomatic anemia secondary to abnormal uterine bleeding. Patient has a history of uterine fibroids and has been having 1 week of constant vaginal bleeding. At this point she is having some lightheadedness and was noted by her OB/Guynn to have a hemoglobin of 5.8. She was started on hormonal medications to help with the bleeding, but at this point is severely anemic and symptomatic. She was seen at [place] and had hemoglobin of 5.2. They do not have the ability to type and cross for a blood transfusion, and thus she was transferred to [facility]. Patient noted to be mildly tachycardic at rest with significant tachycardia when ambulates a small distance. PAST MEDICAL HISTORY Diagnosis Date - Uterine fibroids affecting , antepartum History reviewed. No pertinent surgical history. No family history on file. Social History Tobacco Use - Smoking status: Never - Smokeless tobacco: Never Vaping Use - Vaping Use: Never used Substance and Sexual Activity - Alcohol use: Yes Comment: occ - Drug use: Never - Sexual activity: Not on file ALLERGIES Allergen Reactions - Penicillins GI Upset Review of Systems Constitutional: Pertinent positives and negatives as per HPI. All other systems reviewed and are negative. Physical Exam Vitals [03/08/23 2309] BP Pulse Temp Temp src Resp SpO2 Weight Height 162/80 (!) 105 36.7 ?C (98.1 ?F) Oral 20 100 % 77.1 kg (170 lb) -- Physical Exam Vitals and nursing note reviewed. Constitutional: General: She is in acute distress. Appearance: Normal appearance. HENT: Head: Normocephalic and atraumatic. Eyes: Extraocular Movements: Extraocular movements intact. Pupils: Pupils are equal, round, and reactive to light. Comments: Conjunctival pallor Cardiovascular: Rate and Rhythm: Regular rhythm. Tachycardia present. Pulses: Normal pulses. Heart sounds: Murmur (Systolic) heard. Pulmonary: Effort: Pulmonary effort is normal. No respiratory distress. Breath sounds: No wheezing, rhonchi or rales. Skin: Coloration: Skin is pale. Neurological: General: No focal deficit present. Mental Status: She is alert. Psychiatric: Mood and Affect: Mood normal. Behavior: Behavior normal. Diagnostic Testing ED Labs Ordered and Reviewed BASIC METABOLIC PNL - Abnormal; Notable for the following components: Result Value Ref Range Glucose 103 (*) 74 - 99 mg/dL CO2 21 (*) 22 - 30 mmol/L All other components within normal limits CBC + DIFF - Abnormal; Notable for the following components: RBC 3.64 (*) 3.90 - 5.20 m/uL Hemoglobin 7.6 (*) 11.5 - 15.5 g/dL Hematocrit 25.6 (*) 36.0 - 46.0 % MCV 70.3 (*) 80.0 - 100.0 fL MCH 20.9 (*) 26.0 - 34.0 pg MCHC 29.7 (*) 30.5 - 36.0 g/dL RDW-CV 24.1 (*) 11.5 - 15.0 % All other components within normal limits TYPE + SCREEN RED BLOOD CELLS, ADULT ABO AND RH ONLY RBC TRANSFUSION INSTRUCTION ([place]) RBC TRANSFUSION INSTRUCTION ([place], [place]) Procedures ED Course / Clinical Impression ED Course as of 03/09/23 0601 Pat Diaz's Documentation Sat Mar 09, 2023 0132 Patient reevaluated. Initial unit of packed red blood cells is in process. Patient has no complaints or concerns at this time. 0513 Hemoglobin(!): 7.6 Improved Clinical Impressions as of 03/09/23 0601 Symptomatic anemia Dysfunctional uterine bleeding Uterine leiomyoma, unspecified location MDM / Disposition / Plan Patient was consented for 2 units transfusion of packed red blood cells. Type and cross was performed. Patient declined any medication for discomfort. Patient received 2 units of packed red blood cells. Repeat CBC showed improvement of hemoglobin to 7.6. Patient is feeling much better. She was discharged home with strict return precautions. History and Record Review Clinical information obtained from an independent historian. History obtained from or confirmed by: spouse. External record(s) reviewed: prior outpatient record. Findings from review of outpatient records: Prior visits with the diagnosis of abnormal uterine bleeding with symptomatic anemia were reviewed Differential Diagnoses - Symptomatic anemia is more likely for the following reason(s): Consistent with HANDP and patient's hemoglobin of 5.2 with active vaginal bleeding Management Management of the patient was discussed with:other (see comment) Discussion with other healthcare resource(s) included: Transferring emergency medicine physician Additional Tests or Interventions The following testing was considere (more content not included)... Normal [facility] ED PROV NOTE HNO ID: [id number] Author: Rita Lucia MD Service: Emergency Medicine Author Type: Physician Type: ED Provider Notes Filed: 03/08/2023 11:21 PM Note Text: ED Provider Note Patient Name: Mary Jo Horn : 1965 SERVICE DATE: 03/08/23 History Patient presents with: Blood Test Abnormality The patient is a 57-year-old female presenting today for complaint of I need a blood transfusion. Patient states that she was seen by her CARDIOLOGY ASSOCIATE today. She has been having dysfunctional uterine bleeding with heavier bleeding particular over the last 5 days. She had full exam this morning including lab work. She was started on hormone therapy to try to decrease the amount of bleeding as well as scheduled for a hysterectomy in April. She states she received a call from her CARDIOLOGY ASSOCIATE's office today stating that her hemoglobin was low at 5.8 and that she needed to get to the emergency department for blood transfusion. Patient states today she has been short of breath and more winded. She also had some episodes of lightheadedness although not consistently. Never had an issue with bleeding or blood transfusions in the past. She denies any chest pain. She denies passing out. She does have a known fibroid which they believe is the cause of her current dysfunctional uterine bleeding. PAST MEDICAL HISTORY Diagnosis Date Uterine fibroids affecting , antepartum History reviewed. No pertinent surgical history. No family history on file. Social History Tobacco Use Smoking status: Never Smokeless tobacco: Never Vaping Use Vaping Use: Never used Substance and Sexual Activity Alcohol use: Yes Comment: occ Drug use: Never Sexual activity: Not on file ALLERGIES Allergen Reactions Penicillins GI Upset Review of Systems Constitutional: Negative for activity change, appetite change, chills, fatigue and fever. HENT: Negative for congestion, ear pain, rhinorrhea and sore throat. Respiratory: Positive for shortness of breath. Negative for cough. Cardiovascular: Negative for chest pain and palpitations. Gastrointestinal: Negative for abdominal pain, diarrhea, nausea and vomiting. Genitourinary: Positive for menstrual problem and vaginal bleeding. Negative for dysuria, frequency and urgency. Musculoskeletal: Negative for arthralgias and myalgias. Skin: Negative for rash and wound. Neurological: Positive for light-headedness. Negative for dizziness and headaches. Psychiatric/Behavioral: Negative for self-injury and suicidal ideas. All other systems reviewed and are negative. Physical Exam Vitals [03/08/232057] BP Pulse Temp Temp src Resp SpO2 Weight Height 124/65 (!) 112 36.8 ?C (98.2 ?F) Temporal Art 17 99 % 77.1 kg (170 lb) 1.651 m (5' 5") Physical Exam Vitals and nursing note reviewed. Constitutional: General: She is not in acute distress. Appearance: She is well-developed. She is not ill-appearing. HENT: Head: Normocephalic and atraumatic. Nose: Nose normal. Mouth/Throat: Mouth: Mucous membranes are moist. Eyes: Pupils: Pupils are equal, round, and reactive to light. Comments: Conjunctive are pale Cardiovascular: Rate and Rhythm: Regular rhythm. Tachycardia present. Pulses: Normal pulses. Heart sounds: Normal heart sounds. No murmur heard. No friction rub. No gallop. Pulmonary: Effort: Pulmonary effort is normal. No respiratory distress. Breath sounds: Normal breath sounds. No stridor. No wheezing, rhonchi or rales. Abdominal: General: Bowel sounds are normal. There is no distension. Palpations: Abdomen is soft. Tenderness: There is no abdominal tenderness. There is no guarding or rebound. Musculoskeletal: General: Normal range of motion. Cervical back: Normal range of motion and neck supple. Right lower leg: No edema. Left lower leg: No edema. Skin: General: Skin is warm and dry. Neurological: General: No focal deficit present. Mental Status: She is alert and oriented to person, place, and time. GCS: GCS eye subscore is 4. GCS verbal subscore is 5. GCS motor subscore is 6. Psychiatric: Mood and Affect: Mood normal. Behavior: Behavior normal. Diagnostic Testing ED Labs Ordered and Reviewed CBC + DIFF - Abnormal; Notable for the following components: Result Value Ref Range RBC 2.96 (*) 3.90 - 5.20 m/uL Hemoglobin 5.2 (*) 11.5 - 15.5 g/dL Hematocrit 18.8 (*) 36.0 - 46.0 % MCV 63.5 (*) 80.0 - 100.0 fL MCH 17.6 (*) 26.0 - 34.0 pg MCHC 27.7 (*) 30.5 - 36.0 g/dL RDW-CV 20.6 (*) 11.5 - 15.0 % Platelet Count 410 (*) 150 - 400 k/uL All other components within normal limits IRON + TIBC FERRITIN BLD Procedures ED Course / Clinical Impression Clinical Impressions as of 03/08/23 2317 Anemia due to acute blood loss Dysmenorrhea MDM / Disposition / Plan The patient was seen and examined. History and physical were obtained. Based on history and physical, above diagnostic (more content not included)... Normal [facility] TYPE + SCREENon 03-09-2023 ABO O [facility] Comment on above: Order Comment: Speci men Type: BLOOD SPECIMEN Ordering Facility[facility] Address: [address] [address] Performed By: ###BETTYE RAMIREZ #### [facility] CLIA [id number] [address] HISTORICAL AB SCR STATUS Negative [facility] Comment on above: Order Comment: Speci [facility] Type: BLOOD SPECIMEN Ordering Facility[facility] Address: [address] [address] Performed By: ###BETTYE RAMIREZ #### [facility] CLIA [id number] [address] Rh Nom (Bld) Positive [facility] Comment on above: Order Comment: Speci men Type: BLOOD SPECIMEN Ordering Facility: [facility] Address: [address] [address] Performed By: ###BETTYE RAMIREZ #### [facility] CLIA [id number] [address] [place] TYPE AND SCREEN EXPIRATION 03/11/2023 23:59 Normal [facility] Comment on above: Order Comment: Speci men Type: BLOOD SPECIMEN Ordering Facility: [facility] Address: [address] [place] [address] Performed By: #### A LAUREN KHALILR #### [facility] CLIA [id number] [address] [facility] CBC W Auto Differential pane l (Bld)on 03-08-2023 Basophils (Bld) [#/Vol] 0.04 10*3/uL Normal <0.11 [facility] Comment on above: Order Comment: Speci men Type: BLOOD SPECIMEN Ordering Facility: [facility] Address: [address] [place] [address] Performed By: #### 5 7021-8 #### [facility] CLIA [id number] [address] [place] Basophils/100 WBC (Bld) 0.5 % Normal [facility] Comment on above: Order Comment: Speci men Type: BLOOD SPECIMEN Ordering Facility: [facility] Address: [address] [place] [address] Performed By: #### 5 7021-8 #### [facility] CLIA [id number] [address] Differential cell count method Nom (Bld) Auto Normal [facility] Comment on above: Order Comment: Speci men Type: BLOOD SPECIMEN Ordering Facility: [facility] Address: [address] [place] [address] Performed By: #### 5 7021-8 #### [facility] CLIA [id number] [address] [place] [address] [place] Eosinophils (Bld) [#/Vol] 0.14 10*3/uL Normal <0.46 [facility] Comment on above: Order Comment: Speci men Type: BLOOD SPECIMEN Ordering Facility: [facility] Address: [address] [place] [address] Performed By: #### 5 7021-8 #### [facility] CLIA [id number] [address] [place] Eosinophils/100 WBC (Bld) 1.8 % Normal [facility] Comment on above: Order Comment: Speci men Type: BLOOD SPECIMEN Ordering Facility: [facility] Address: [address] [place] [address] Performed By: #### 5 7021-8 #### [facility] CLIA [id number] [address] [place] [address] [place] Erythrocyte distribution width (RBC) [Ratio] 20.6 % High 11.5-15.0 [facility] Comment on above: Order Comment: Speci men Type: BLOOD SPECIMEN Ordering Facility: [facility] Address: [address] [place] [address] Performed By: #### 5 7021-8 #### [facility] CLIA [id number] [address] [place] [address] [place] Hematocrit (Bld) [Volume fraction] 18.8 % Low 36.0-46.0 [facility] Comment on above: Order Comment: Speci men Type: BLOOD SPECIMEN Ordering Facility: [facility] Address: [address] [place] [address] Performed By: #### 5 7021-8 #### [facility] CLIA [id number] [address] [place] [address] [place] Hemoglobin (Bld) [Mass/Vol] 5.2 g/dL Critically low 11.5-15.5 [facility] Comment on above: Order Comment: Speci men Type: BLOOD SPECIMEN Ordering Facility: [facility] Address: [address] [place] [address] Result Comment: Resu lts checked and verified. No clot detected. Performed By: #### 5 7021-8 #### [facility] CLIA [id number] [address] [place] [address] [place] Immature granulocytes (Bld) [#/Vol] 10*3/uL Normal <0.10 [facility] Comment on above: Order Comment: Speci men Type: BLOOD SPECIMEN Ordering Facility: [facility] Address: [address] [place] [address] Performed By: #### 5 7021-8 #### [facility] CLIA [id number] [address] [place] Immature granulocytes/100 WBC (Bld) 0.1 % Normal [facility] Comment on above: Order Comment: Speci men Type: BLOOD SPECIMEN Ordering Facility: [facility] Address: [address] [place] [address] Performed By: #### 5 7021-8 #### [facility] CLIA [id number] [address] [place] Lymphocytes (Bld) [#/Vol] 2.01 10*3/uL Normal 1.00-4.00 [facility] Comment on above: Order Comment: Speci men Type: BLOOD SPECIMEN Ordering Facility: [facility] Address: [address] [place] [address] Performed By: #### 5 7021-8 #### [facility] CLIA [id number] [address] [place] [address] Lymphocytes/100 WBC (Bld) 25.8 % Normal [facility] Comment on above: Order Comment: Speci men Type: BLOOD SPECIMEN Ordering Facility: [facility] Address: [address] [place] [address] Performed By: #### 5 7021-8 #### [facility] CLIA [id number] [address] [place] [address] [place] MCH (RBC) [Entitic mass] 17.6 pg Low 26.0-34.0 [facility] Comment on above: Order Comment: Speci men Type: BLOOD SPECIMEN Ordering Facility: [facility] Address: [address] [place] [address] Performed By: #### 5 7021-8 #### [facility] CLIA [id number] [address] [place] [address] [place] MCHC (RBC) [Mass/Vol] 27.7 g/dL Low 30.5-36.0 [facility] Comment on above: Order Comment: Speci men Type: BLOOD SPECIMEN Ordering Facility: [facility] Address: [address] [place] [address] Performed By: #### 5 7021-8 #### [facility] CLIA [id number] [address] [place] MCV (RBC) [Entitic vol] 63.5 fL Low 80.0-100.0 [facility] Comment on above: Order Comment: Speci men Type: BLOOD SPECIMEN Ordering Facility: [facility] Address: [address] [place] [address] Performed By: #### 5 7021-8 #### [facility] CLIA [id number] [address] [place] Monocytes (Bld) [#/Vol] 0.72 10*3/uL Normal <0.87 [facility] Comment on above: Order Comment: Speci men Type: BLOOD SPECIMEN Ordering Facility: [facility] Address: [address] [place] [address] Performed By: #### 5 7021-8 #### [facility] CLIA [id number] [address] Monocytes/100 WBC (Bld) 9.2 % Normal [facility] Comment on above: Order Comment: Speci men Type: BLOOD SPECIMEN Ordering Facility: [facility] Address: [address] [place] [address] Performed By: #### 5 7021-8 #### [facility] CLIA [id number] [address] [place] Neutrophils (Bld) [#/Vol] 4.88 10*3/uL Normal 1.45-7.50 [facility] Comment on above: Order Comment: Speci men Type: BLOOD SPECIMEN Ordering Facility: [facility] Address: [address] [place] [address] Performed By: #### 5 7021-8 #### [facility] CLIA [id number] [address] [place] [address] [facility] [place] Neutrophils/100 WBC (Bld) 62.6 % Normal [facility] Comment on above: Order Comment: Speci men Type: BLOOD SPECIMEN Ordering Facility: [facility] Address: [address] [place] [address] Performed By: #### 5 7021-8 #### [facility] CLIA [id number] [address] [place] Nucleated RBC (Bld) [#/Vol] Normal [facility] Comment on above: Order Comment: Speci men Type: BLOOD SPECIMEN Ordering Facility: [facility] Address: [address] [place] [address] Performed By: #### 5 7021-8 #### [facility] CLIA [id number] [address] [place] Nucleated RBC/100 WBC (Bld) [Ratio] Normal [facility] Comment on above: Order Comment: Speci men Type: BLOOD SPECIMEN Ordering Facility: [facility] Address: [address] [place] [address] Performed By: #### 5 7021-8 #### [facility] CLIA [id number] [address] [place] [address] [place] Platelet mean volume (Bld) [Entitic vol] 9.6 fL Normal 9.0-12.7 [facility] Comment on above: Order Comment: Speci men Type: BLOOD SPECIMEN Ordering Facility: [facility] Address: [address] [place] [address] Performed By: #### 5 7021-8 #### [facility] CLIA [id number] [address] [place] [address] [place] Platelets (Bld) [#/Vol] 410 10*3/uL High 150-400 [facility] Comment on above: Order Comment: Speci men Type: BLOOD SPECIMEN Ordering Facility: [facility] Address: [address] [place] [address] Performed By: #### 5 7021-8 #### [facility] CLIA [id number] [address] [place] [id number] [place] [address] RBC (Bld) [#/Vol] 2.96 10*6/uL Low 3.90-5.20 [facility] Comment on above: Order Comment: Speci men Type: BLOOD SPECIMEN Ordering Facility: [facility] Address: [address] [place] [address] Performed By: #### 5 7021-8 #### [facility] CLIA [id number] [address] [place] [id number] [place] [address] WBC (Bld) [#/Vol] 7.80 10*3/uL Normal 3.70-11.00 [facility] Comment on above: Order Comment: Speci men Type: BLOOD SPECIMEN Ordering Facility: [facility] Address: [address] [place] [address] Performed By: #### 5 7021-8 #### [facility] CLIA [id number] [address] [place], [place] [id number] [facility] ED NOTEon 03-08-2023 ED NOTE HNO ID: [id number] Author: Isabel Richardson RN Service: Emergency Medicine Author Type: Registered Nurse Type: ED Notes Filed: 03/08/2023 9:19 PM Note Text: Patient reports heavy uterine bleeding for past few days. Patient states changing pads q. 20 min or so. Normal [facility] Ferritin SerPl-mCncon 2022 Ferritin [Mass/Vol] 6.8 ng/mL Low 14.7-205.1 [facility] Comment on above: Order Comment: Speci men Type: BLOOD SPECIMEN Ordering Facility: [facility] Address: [address] [place] [address] Performed By: #### 5 0190-8, 2275-4 #### [facility] CLIA [id number] [address] [place] Iron and Iron binding capaci ty panelon 03-08-2023 Iron [Mass/Vol] 14 ug/dL Low 41-186 [facility] Comment on above: Order Comment: Speci men Type: BLOOD SPECIMEN Ordering Facility: [facility] Address: [address] [place] [address] Performed By: #### 5 0190-8, 2275- #### [facility] CLIA [id number] [address] [facility] Iron binding capacity [Mass/Vol] >514 High 232-386 [facility] Comment on above: Order Comment: Speci men Type: BLOOD SPECIMEN Ordering Facility: [facility] Address: [address] [place] [address] Performed By: #### 5 0190-8, 2275-4 #### [facility] CLIA [id number] [address] Iron saturation [Mass fraction] <2.7 Low 15.0-57.0 [facility] Comment on above: Order Comment: Speci men Type: BLOOD SPECIMEN Ordering Facility: [facility] Address: [address] [place] [address] Performed By: #### 5 0190-8, 2275-4 #### [facility] CLIA [id number] [address] [place] DBT Breast - bilateral scree susan 11-30-2022 No mammographic evidence of malignancy. ASSESSMENT: Category 1 Negative RECOMMENDATION: Routine screening mammogram in 1 year. Bilateral Report Dictated on Electronically Signed By: Rita Jurado Electronically Signed Date/Time: 11/30/2022 10:21 AM [facility] Patient Name: MARY JO NORIEGA : 1965 Exam Date/Time: 11/30/2022 09:52 Procedure: BI MAMMOGRAM SCREENING TOMOSYNTHESIS BILATERAL Ordering Provider: FRAUSTO ANITA Reason For Exam: z12.31 Image views: 2D Bilateral CC and MLO views were acquired. 3D Bilateral CC and MLO views were acquired. Images were reviewed with CAD. Markings on images: BB's = Nipples; skin lesions Open [place] = Palpable Line = Scar COMPARISON: 09/01/2021 and 07/22/2020 and 05/25/2019 and 12/23/2009 TISSUE DENSITY: BIRADS B - There are scattered fibroglandular densities. FINDINGS: No suspicious masses, architectural distortions or suspiciously clustered microcalcifications are identified. There is no evidence of skin thickening or nipple retraction. There are no significant changes when compared with prior studies. [facility] Rita Jurado MD - 11/30/2022 Patient Name: MARY JO HORN : 1965 Exam Date/Time: 11/30/2022 09:52 Procedure: BI MAMMOGRAM SCREENING TOMOSYNTHESIS BILATERAL Ordering Provider: FRAUSTO ANITA Reason For Exam: z12.31 Image views: 2D Bilateral CC and MLO views were acquired. 3D Bilateral CC and MLO views were acquired. Images were reviewed with CAD. Markings on images: BB's = Nipples; skin lesions Open [place] = Palpable Line = Scar COMPARISON: 09/01/2021 and 07/22/2020 and 05/25/2019 and 12/23/2009 TISSUE DENSITY: BIRADS B - There are scattered fibroglandular densities. FINDINGS: No suspicious masses, architectural distortions or suspiciously clustered microcalcifications are identified. There is no evidence of skin thickening or nipple retraction. There are no significant changes when compared with prior studies. IMPRESSION: No mammographic evidence of malignancy. ASSESSMENT: Category 1 Negative RECOMMENDATION: Routine screening mammogram in 1 year. Bilateral Report Dictated on Electronically Signed By: Rita Jurado Electronically Signed Date/Time: 11/30/2022 10:21 AM EST [facility] Study observation (narrative) [facility] DBT Breast - bilateral scree ningOrdered By: Rita Jurado on 11-30-2022 [facility] Work Phone: MG Breast Tomosynthesis Scr Blon 09-01-2021 MG Breast Tomosynthesis Scr Bl Patient Name: MARY JO HORN Mammography ACCESSION EXAM DATE/TIME PROCEDURE ORDERING PROVIDER [id number] 09/01/2021 08:54 EST MG Breast Tomosynthesis RAY FRAUSTO BI Scr CPT code 67418 [id number] Reason For Exam (MG Breast Tomosynthesis BI Scr) screening Report TIME SINCE LAST MAMMOGRAM: Last mammogram was performed 1 year and 1 month ago. REASON FOR EXAM: screening, asymptomatic. PROCEDURE: MG BREAST TOMOSYNTHESIS BL SCR: SEPTEMBER 01, 2021 - 2D/3D Procedure 3D Bilateral CC and MLO view(s) were taken. 2D Bilateral CC and MLO view(s) were taken. Technologist: Kulwant Ramos) Prior study comparison: July 22, 2020, bilateral MG breast tomosynthesis bl scr performed at [facility]. May 25, 2019, bilateral MG breast tomosynthesis bl scr performed at [facility]. January 03, 2018, bilateral MG breast tomosynthesis bl scr performed at [facility]. TISSUE DENSITY: BIRADS B - There are scattered fibroglandular densities. . RISK ALERT: The Cancer Risk Assessment scores below the recommendation of this report contain an outcome above the normal risk range. PATIENT CANCER HISTORY: No Personal History of Cancer FAMILY CANCER HISTORY: Maternal Aunt Breast Cancer age 51, Liver Cancer age 55 FINDINGS: No suspicious masses, architectural distortions or suspiciously clustered microcalcifications are identified. There is no evidence of skin thickening or nipple retraction. There are no significant changes when compared with prior studies. No mammographic evidence of malignancy. Markings on images: BB's = Nipples; skin lesions Open che[place] = Palpable Mammography Report Line = Scar 2D digital mammography and tomosynthesis imaging were performed and reviewed with CAD. ASSESSMENT: Category 1 Negative RECOMMENDATION: Routine screening mammogram of both breasts in 1 year. . Report Dictated on Cancer Risk Assessment: This risk assessment is based on patient provided information collected in a risk survey taken at the time of this examination. Lifetime breast cancer risk: Shayyer-Jonatanck v7 24.98% - If greater than or equal to 20%, consider annual mammogram and annual screening Breast MRI or follow up in high risk clinic. A score of "Average Risk" indicates a score of less than 20%. Is the patient at elevated risk based on the HBOC criteria? No (Hereditary Breast and Ovarian Cancer) - If yes, consider genetic counseling and testing with high risk follow up. Is the patient at elevated risk based on the Stephens Syndrome criteria? No - If yes, consider genetic counseling and testing with high risk follow up. Final Signed Date and Time: 09/01/2021 9:13 am Signed by: MD KRAMER [facility] BR MRI BREAST BILATERAL WITH CONTRAST FAST SCREENING (SELF PAY)on 12-09-2020 BR MRI BREAST BILATERAL WITH CONTRAST FAST SCREENING (SELF PAY) Patient Name: MARY JO HORN STUDY: MRI BREAST BILATERAL WITH CONTRAST FAST SCREENING (SELF PAY); 12/09/2020 12:30 pm ACCESSION NUMBER(S): [id number] ORDERING CLINICIAN: RAY FRAUSTO INDICATION: Supplemental screening. Family history of breast cancer. COMPARISON: None. TECHNIQUE: Using a dedicated breast coil, STIR axial and T1-weighted fat saturation axial images of the breasts were obtained, the latter both before and after intravenous administration of Gadolinium DTPA. Intravenous contrast: 7 mL Gadavist FINDINGS: There is symmetric minimal bilateral background enhancement. There is heterogenous fibroglandular tissue. RIGHT BREAST: No suspicious mass or nonmass enhancement is identified. No axillary or internal mammary lymphadenopathy is appreciated. LEFT BREAST: Fibrocystic changes are seen in the superolateral quadrant at anterior and posterior depths. No suspicious mass or nonmass enhancement is identified. No axillary or internal mammary lymphadenopathy is appreciated. NON-BREAST FINDINGS: None. IMPRESSION: No MRI evidence of malignancy in either breast. BI-RADS CATEGORY: Category: 2 - Benign. Recommendation: 1 Year Screening. I personally reviewed the images/study and I agree with the group president physician, Dr. Randall Hoff's findings, as stated. This study was interpreted at [facility]. Electronically signed by: ANDRE CLEANING MD [facility] LAUREN NICOLAS DIGITAL SCREEN GIOVANNY Dong 05-25-2019 Patient Name: MARY JO NORIEGA ---Mammography--- Exam Date/Time 05/25/2019 09:25:00 EDT Exam MG Breast Tomosynthesis BI Scr Ordering Physician RAY FRAUSTO Accession Number [id number] CPT4 Codes 93884 (MG Breast Tomosynthesis Scr Bl), 89703 (MG MAMMO 2D SCREENING) Reason For Exam screening Report PATIENT HISTORY: Patient had first child at age 38. Family history of breast cancer at age 51 in maternal aunt. Took hormonal contraceptives for 20 years. Patient has never smoked. Patient's BMI is 28.3. TIME SINCE LAST MAMMOGRAM: Last mammogram was performed 1 year and 5 months ago. REASON FOR EXAM: screening, asymptomatic. PROCEDURE: MG BREAST TOMOSYNTHESIS BL SCR: MAY 25, 2019 - 2D/3D Procedure 3D Bilateral CC and MLO view(s) were taken. 2D Bilateral CC and MLO view(s) were taken. Prior study comparison: January 03, 2018, bilateral MG breast tomosynthesis bl scr performed at [facility]. November 30, 2016, bilateral MG breast tomosynthesis bl scr performed at [facility]. September 21, 2014, bilateral MG mammogram digital screening performed at [facility]. March 19, 2013, bilateral MG mammogram digital screening performed at [facility]. TISSUE DENSITY: There are scattered fibroglandular densities. . FINDINGS: No suspicious masses, architectural distortions or suspiciously clustered microcalcifications are identified. There is no evidence of skin thickening or nipple retraction. There are no significant changes when compared with prior studies. Markings on images: BB's = Nipples; skin lesions Open [place] = Palpable Line = Scar 2D digital mammography and tomosynthesis imaging were performed and reviewed with CAD. ASSESSMENT: Category 1 Negative No mammographic evidence of malignancy. RECOMMENDATION: Routine screening mammogram of both breasts in 1 year. . Report Dictated on Cancer Risk Assessment: This risk assessment is based on patient provided information collected in a risk survey taken at the time of this examination. Lifetime breast cancer risk: 24.3% - If greater than or equal to 20%, consider annual mammogram and annual screening Breast MRI or follow up in high risk clinic. Is the patient at elevated risk based on the HBOC criteria? No (Hereditary Breast and Ovarian Cancer) - If yes, consider genetic counseling and testing with high risk follow up. HNPCC mutation risk (Stephens Syndrome): 1% - if greater than or equal to 5%, consider genetic counseling, testing and screening colonoscopy. --- Final --- Signed Date and Time: 05/25/2019 2:45 pm Signed by: MD LISA, [facility] [place], [facility], [facility] Incoming Radiology Results From [facility] - 05/25/2019 3:50 PM EDT Patient Name: MARY JO HORN ---Mammography--- Exam Date/Time 05/25/2019 09:25:00 EDT Exam MG Breast Tomosynthesis BI Scr Ordering Physician RAY FRAUSTO Accession Number [id number] CPT4 Codes 16859 (MG Breast Tomosynthesis Scr Bl), 92010 (MG MAMMO 2D SCREENING) Reason For Exam screening Report PATIENT HISTORY: Patient had first child at age 38. Family history of breast cancer at age 51 in maternal aunt. Took hormonal contraceptives for 20 years. Patient has never smoked. Patient's BMI is 28.3. TIME SINCE LAST MAMMOGRAM: Last mammogram was performed 1 year and 5 months ago. REASON FOR EXAM: screening, asymptomatic. PROCEDURE: MG BREAST TOMOSYNTHESIS BL SCR: MAY 25, 2019 - 2D/3D Procedure 3D Bilateral CC and MLO view(s) were taken. 2D Bilateral CC and MLO view(s) were taken. Prior study comparison: January 03, 2018, bilateral MG breast tomosynthesis bl scr performed at [facility]. November 30, 2016, bilateral MG breast tomosynthesis bl scr performed at [facility]. September 21, 2014, bilateral MG mammogram digital screening performed at [facility]. March 19, 2013, bilateral MG mammogram digital screening performed at [facility]. TISSUE DENSITY: There are scattered fibroglandular densities. . FINDINGS: No suspicious masses, architectural distortions or suspiciously clustered microcalcifications are identified. There is no evidence of skin thickening or nipple retraction. There are no significant changes when compared with prior studies. Markings on images: BB's = Nipples; skin lesions Open [place] = Palpable Line = Scar 2D digital mammography and tomosynthesis imaging were performed and reviewed with CAD. ASSESSMENT: Category 1 Negative No mammographic evidence of malignancy. RECOMMENDATION: Routine screening mammogram of both breasts in 1 year. . Report Dictated on Cancer Risk Assessment: This risk assessment is based on patient provided information collected in a risk survey taken at the time of this examination. Lifetime breast cancer risk: 24.3% - If greater than or equal to 20%, consider annual mammogram and annual screening Breast MRI or follow up in high risk clinic. Is the patient at elevated risk based on the HBOC criteria? No (Hereditary Breast and Ovarian Cancer) - If yes, consider genetic counseling and testing with high risk follow up. HNPCC mutation risk (Stephens Syndrome): 1% - if greater than or equal to 5%, consider genetic counseling, testing and screening colonoscopy. --- Final --- Signed Date and Time: 05/25/2019 2:45 pm Signed by: MD LISA, [place], [place] Vital Signs Date Time Vital Sign Value Performing Clinician Collin bartlett 01-10-2024 08:47-0400 Body height 165.1 cm Ray Frausto MD Work Phone: [facility] 01-10-2024 08:47-0400 Body mass index (BMI) [Ratio] 29.95 kg/m2 Ray Frausto MD Work Phone: [facility] 01-10-2024 08:47-0400 Body weight 81.65 kg Ray Frausto MD Work Phone: [facility] 11-30-2022 09:44-0500 Body height 165.1 cm [facility] 11-30-2022 09:44-0500 Body mass index (BMI) [Ratio] 29.95 kg/m2 [facility] 1 [facility] 11-30-2022 09:44-0500 Body weight 81.65 kg [facility] 1 [facility] Encounters Encounter Date Encounter Type Care Provider Facility Start: 07-15-2025 ambulatory Health Risk Assessment Facility:[facility] Start: 01-13-2025 End: 01-13-2025 ambulatory [facility] Start: 01-13-2025 End: 01-13-2025 Subsequent hospital visit by physician Ray Frausto MD Work Phone: [facility] Comment on above: Encounter for screen ing mammogram for malignant neoplasm of breast Start: 12-09-2024 End: 03-10-2025 Transcribe Orders Ray Frausto MD Work Phone: [facility] Scheduling Comment on above: Encounter for screen ing mammogram for malignant neoplasm of breast (Primary Dx) Start: 09-16-2024 End: 09-16-2024 ambulatory RAY FRAUSTO MD Facility:[facility] Start: 01-10-2024 End: 01-10-2024 Subsequent hospital visit by physician Ray Frausto MD Work Phone: [facility] Comment on above: Encounter for screen ing mammogram for malignant neoplasm of breast Start: 11-22-2023 Transcribe Orders Ray goodman MD Work Phone: [facility] Central Scheduling Comment on above: Encounter for screen ing mammogram for malignant neoplasm of breast (Primary Dx) Start: 07-04-2023 End: 07-05-2023 ambulatory RAY FRAUSTO MD Facility:[facility] Start: 06-17-2023 End: 06-17-2023 ambulatory IAN COSTA DO-DARIN Facility:[facility] Start: 06-06-2023 End: 06-07-2023 ambulatory RAY FRAUSTO MD Facility:[facility] Start: 05-20-2023 ambulatory 837 NO FAMILY PHYSICIAN Facility:[facility] Start: 05-17-2023 End: 05-18-2023 Evaluation and management of inpatient RAY FRAUSTO MD Facility:[id number] Start: 05-17-2023 End: 05-18-2023 ambulatory RAY FRAUSTO MD Facility:[id number] Start: 05-07-2023 End: 05-08-2023 ambulatory RAY FRAUSTO MD Facility:[id number] Start: 05-07-2023 End: 05-08-2023 ambulatory RAY FRAUSTO MD Facility:[facility] Start: 05-02-2023 End: 05-03-2023 ambulatory RAY FRAUSTO MD Facility:[id number] Start: 05-02-2023 End: 05-03-2023 ambulatory RAY FRAUSTO MD Facility:[facility] Start: 05-01-2023 ambulatory 837 NO FAMILY PHYSICIAN Facility:[facility] Start: 04-11-2023 End: 04-12-2023 ambulatory RAY FRAUSTO MD Facility:[id number] Start: 04-11-2023 End: 04-12-2023 ambulatory 837 NO FAMILY PHYSICIAN Facility:[facility] Start: 04-10-2023 ambulatory 837 NO FAMILY PHYSICIAN Facility:[facility] Start: 04-04-2023 ambulatory 837 NO FAMILY PHYSICIAN Facility:[facility] Start: 03-09-2023 End: 03-09-2023 Emergency department patient visit PAT DIAZ Facility:[facility] Start: 03-08-2023 Emergency department patient visit Facility:[facility] Start: 03-08-2023 End: 03-09-2023 ambulatory 837 NO FAMILY PHYSICIAN Facility:[id number] Start: 03-08-2023 End: 03-09-2023 ambulatory RAY FRAUSTO MD Facility:[facility] Start: 11-30-2022 End: 11-30-2022 Subsequent hospital visit by physician [facility] Exam Room 1 [facility] Comment on above: Encounter for screen ing mammogram for malignant neoplasm of breast Start: 10-26-2022 Transcribe Orders Ray goodman MD Work Phone: [facility] Central Scheduling Comment on above: Encounter for screen ing mammogram for malignant neoplasm of breast (Primary Dx) Start: 10-09-2022 ambulatory 837 NO FAMILY PHYSICIAN Facility:[facility] Start: 08-13-2022 End: 08-14-2022 ambulatory RAY FRAUSTO MD Facility:[facility] Start: 07-22-2020 End: 07-22-2020 Subsequent hospital visit by physician Ray Frausto Work Phone: [facility] Comment on above: Arrived Start: 05-25-2019 End: 05-25-2019 Subsequent hospital visit by physician Ray Frausto Work Phone: [facility] Comment on above: Arrived Start: 01-03-2018 Ambulatory Ray Root [facility] Procedures Date Procedure Procedure Detail Performing Clinician Start: 01-13-2025 End: 01-13-2025 Screening digital breast tomosynthesis bi Ray Frausto MD Work Phone: Start: 01-10-2024 End: 01-10-2024 Screening digital breast tomosynthesis bi Ray Frausto MD Work Phone: Start: 03-09-2023 Antibody screen PAT MARIE Comment on above: Order Comment: Speci men Type: BLOOD SPECIMEN Ordering Facility: [facility] Address: [address] [place], [place] [id number] Performed By: #### A REMI, [facility] #### [place] [facility] [id number] [address] [place] [address] [facility] Start: 11-30-2022 End: 11-30-2022 Mammography Ray Frausto MD Work Phone: Start: 05-25-2019 Screening digital br east tomosynthesis bi Ray Frausto Work Phone: Plan of Treatment Date Care Activity Detail Author Start: 2042 RSV Immunization for Adults (1 - 1-dose 75+ series) RSV Immunization for Adults (1 - 1-dose 75+ series) [facility] Start: 2027 RSV Immunization age d 60 or older (1 - 1-dose 60+ series) RSV Immunization aged 60 or older (1 - 1-dose 60+ series) [facility] Start: 01-13-2026 Screening for malign ant neoplasm of breast Mammogram [facility] Start: 05-31-2025 Influenza vaccination Influenz a Vaccine (Season Ended) [facility] Start: 01-09-2025 Screening for malign ant neoplasm of breast Mammogram [facility] Start: 05-31-2024 COVID-19 Vaccine ( season) COVID-19 Vaccine ( season) [facility] Start: 05-31-2024 Influenza vaccination Influenz a Vaccine (Season Ended) [facility] Start: 12-01-2023 Screening for malign ant neoplasm of breast Mammogram [facility] Start: 05-31-2023 COVID-19 Vaccine ( season) COVID-19 Vaccine ( season) [facility] Start: 05-31-2023 Influenza vaccination Influenz a Vaccine (Season Ended) [facility] Start: 05-31-2022 Influenza vaccination Influenza Vacc ine (#1) [facility] Start: 05-25-2021 Screening for malign ant neoplasm of breast Breast cancer screen [place], [place] Start: 05-11-2021 COVID-19 Vaccine (3 - Booster for Pfizer series) COVID-19 Vaccine (3 - Booster for Pfizer series) [facility] Start: 05-31-2020 Influenza vaccination Flu vaccine (# 1) [place] Start: 05-05-2020 Cervical cancer screen Cervical canc er screen [place] Start: 01-04-2020 Breast cancer screen Breast cancer s creen [place] Start: 05-31-2019 Influenza vaccination Flu vaccine (# 1) [place] Start: 05-05-2018 Screening for malign ant neoplasm of cervix Cervical cancer screen [place] Start: 2017 Colon cancer screen colonoscopy Colon cancer screen colonoscopy [place] Start: 2017 Pneumococcal Vaccine : 50+ Years (1 of 1 - PCV) Pneumococcal Vaccine: 50+ Years (1 of 1 - PCV) [facility] Start: 2017 Screening for malign ant neoplasm of colon Colon cancer screen colonoscopy [place] Start: 2017 Shingles Vaccine (1 of 2) Ramos gles Vaccine (1 of 2) [place] Start: 2017 Zoster Vaccines (1 of 2) Zoster Vacc racheal (1 of 2) [facility] Start: 2007 Lipid panel Lipid screen [place], [place] Start: 2007 Lipid screen Lipid screen [place], [place] Start: 1997 Screening for malign ant neoplasm of cervix [facility] Start: 1988 Screening for malign ant neoplasm of cervix Pap Smear [facility] Start: 1986 DTaP/Tdap/Td vaccine (1 - Tdap) DTaP/Tdap/Td vaccine (1 - Tdap) [place] Start: 1986 DTaP/Tdap/Td Vaccine s (1 - Tdap) DTaP/Tdap/Td Vaccines (1 - Tdap) [facility] Start: 1986 Hepatitis B Vaccines (1 of 3 - 19+ 3-dose series) Hepatitis B Vaccines (1 of 3 - 19+ 3-dose series) [facility] Start: 1985 Diabetes mellitus screening Diabetes Screening [facility] Start: 1985 Hepatitis C screening Hepatitis C Sc reening [facility] Start: 1982 HIV screen HIV screen [place], [place] Start: 1982 [facility] [place] [place] Start: 1979 Depression Screening Depression Scre ening [facility] Start: 1968 MMR Vaccines (1 of 1 - Standard series) MMR Vaccines (1 of 1 - Standard series) [facility] Start: 1967 Hepatitis B Vaccines (1 of 3 - 3-dose series) Hepatitis B Vaccines (1 of 3 - 3-dose series) [facility] Start: 1967 HIV screening HIV Screening [facility] Start: 1967 Screening for malign ant neoplasm of colon [facility] End: 07-22-2020 Screening digital breast tomosynthesis bi Lauren Nicolas Digital Screen Bilateral Imaging Routine Once for 1 Occurrences starting 07/22/2020 until 07/22/2020 [place] Comment on above: Once for 1 Occurrenc es starting 07/22/2020 until 07/22/2020 Screening digital br east tomosynthesis bi Lauren Nicolas Digital Screen Bilateral Imaging Routine 07/22/2020 11:53 AM EDT [place], [place] Immunizations Immunization Date Immunization Notes Care Provider [address] 03-16-2021 Pfizer SARS-CoV-2 Vaccination [facility] 1 [facility] 02-23-2021 Pfizer SARS-CoV-2 Vaccination [facility] 1 [facility] Payers Date Payer Category Payer Self-pay 2021 [employer] [place] [employer] Managed Care - [place] ANTHEM BLUE CROSS [id number] 2019 Unknown [id number] 2019 Unknown BCBS [place] P PO [id number] 2019-Present [address] [place] [address] [id number] 2014 Unknown BCBS ANTHEM BLUE ACCESS JANAY xxxxxxxxxxxx 2014-Present [address] [place] [address] xxxxxxxxxxxx [id number] 2008 Unknown 2008 Unknown [id number] 1967 Unknown [id number] 20.1.861800.3.579.2. 159 1967 Unknown [id number] 11.15.830.1.168759.3.579.2. 159 1967 Unknown [id number] 2.840.1.577255.3.579.2. 159 1967 Unknown [id number] 2.0.1.517450.3.579.2. 159 1967 Unknown [id number] 20.1.724580.3.579.2. 159 1967 Unknown [id number] 2.840.1.020890.3.579.2. 159 1967 Unknown [id number] 2.16.840.1.834381.3.579.2. 159 1967 Unknown [id number] 2.16.840.1.312094.3.579.2. 159 1967 Unknown [id number] 2.16.840.1.265027.3.579.2. 159 1967 Unknown [id number] 2.16.840.1.620458.3.579.2. 159 1967 Unknown [id number] 2.16.840.1.974112.3.579.2. 159 1967 Unknown [id number] 2.16840.1.876023.3.579.2. 159 1967 Unknown [id number] 2.16.840.1.092936.3.579.2. 159 1967 Unknown [id number] 2.840.1.552392.3.579.2. 159 1967 Unknown [id number] 2.16840.1.969890.3.579.2. 159 1967 Unknown [id number] 2.16840.1.713236.3.579.2. 159 1967 Unknown [id number] 2.16840.1.858525.3.579.2. 159 1967 Unknown [id number] 2.16840.1.612315.3.579.2. 159 1967 Unknown [id number] 2.16840.1.391654.3.579.2. 159 1967 Unknown [id number] 2.16840.1.620655.3.579.2. 159 1967 Unknown [id number] 2.16.840.1.104574.3.579.2. 159 1967 Unknown [id number] 2.16840.1.438807.3.579.2. 159 Social History Date Type Detail Facility Start: 05-05-2015 End: 01-10-2024 Tobacco smoking status NHIS Never smoker [facility] Start: 05-05-2015 End: 01-13-2025 [facility] Start: 1965 [facility] Start: 05-05-2015 End: 01-10-2024 Alcohol intake Current [facility] of [facility] (finding[facility] Start: 05-05-2015 End: 01-13-2025 Alcohol intake [facility] Start: 11-20-2022 End: 11-30-2022 Exposure to SARS-CoV-2 (event) Not sure [facility] Start: 01-10-2024 Tobacco use and exposure Smokeless tobacco non-user [facility] Start: 04-30-2022 Sex Female (finding) [facility] Evaluation note Note Date & Type Note Facility Evaluation note Diagnosis Encounter for screening mammogram for malignant neoplasm of breast- Primary documented in this encounter [facility] Evaluation note Note Date & Type Note Facility Evaluation note Diagnosis Encounter for screening mammogram for malignant neoplasm of breast documented in this encounter [facility] Evaluation note Note Date & Type Note Facility Evaluation note Diagnosis Encounter for screening mammogram for malignant neoplasm of breast- Primary Encounter for screening mammogram for malignant neoplasm of breast documented in this encounter [facility] Evaluation note Note Date & Type Note Facility Evaluation note Diagnosis Encounter for screening mammogram for malignant neoplasm of breast documented in this encounter [facility] Evaluation note Note Date & Type Note Facility Evaluation note Diagnosis Encounter for screening mammogram for malignant neoplasm of breast documented in this encounter [facility] Evaluation note Note Date & Type Note Facility Evaluation note Diagnosis Encounter for screening mammogram for malignant neoplasm of breast- Primary Encounter for screening mammogram for malignant neoplasm of breast documented in this encounter [facility] Health Summary Purpose Family History No Family History Records FoundNo Family History Records FoundNo Family History Records FoundNo Family History Records FoundNo Family History Records FoundNo Family History Records FoundNo Family History Records FoundNo Family History Records FoundNo Family History Records Found Advance Directives No Advanced Directives Records FoundDocuments on File Type Date 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 Advance Directives and Living Will Power of Barber Shop Manager Documents on File Type Date 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 ACP-Advance Directive ACP-Power of Barber Shop Manager Additional Source Comments INFORMATION SOURCE (unrecogn ized section and content) DATE CREATED AUTHOR 03/20/2018 [facility] DATE CREATED AUTHOR AUTHOR'S ORGANIZ ATION 12/25/2020 [facility] DATE CREATED AUTHOR AUTHOR'S ORGANIZ ATION 09/02/2021 [facility] DATE CREATED AUTHOR AUTHOR'S ORGANIZ ATION 03/13/2023 [facility] DATE CREATED AUTHOR AUTHOR'S ORGANIZ ATION 03/13/2023 [facility] DATE CREATED AUTHOR AUTHOR'S ORGANIZ ATION 07/07/[address] [facility] DATE CREATED AUTHOR AUTHOR'S ORGANIZ ATION 09/19/[address] [facility] DATE CREATED AUTHOR AUTHOR'S ORGANIZ ATION 01/16/2025 [facility] DATE CREATED AUTHOR AUTHOR'S ORGANIZ ATION 07/17/2025 [facility] Care Teams (unrecognized sec tion and content) Security Consultant Relationship Specialty Start Date End Date Ray Frausto MD [address], [address] [place], [place] [id number] PCP - General 05/05/15 Security Consultant Relationship Specialty Start Date End Date Ray Frausto MD [facility], [address] [place] [address] PCP - General 05/05/15 Security Consultant Relationship Specialty Start Date End Date Ray Frausto MD [facility], [address] [place] [address] PCP - General 05/05/15 Security Consultant Relationship Specialty Start Date End Date Ray Frausto MD [address], [address] [place], [place] [id number] PCP - General 05/05/15 Security Consultant Relationship Specialty Start Date End Date Ray Frausto MD [address], [address] [place], [place] [id number] PCP - General 05/05/15 FOR RECORDS PERTAINING TO PATIENTS WHO ARE OR HAVE BEEN ENROLLED IN A CHEMICAL DEPENDENCY/SUBSTANCEABUSE PROGRAM, SOME INFORMATION MAY BE OMITTED. This clinical summary was aggregated from multiple sources. Caution should be exercised in using it in the provision of clinical care. This summary normalizes information from multiple sources, and as a consequence, information in this document may materially change the coding, format and clinical context of patient data. In addition, data may be omitted in some cases. CLINICAL DECISIONS SHOULD BE BASED ON THE PRIMARY CLINICAL RECORDS. [facility] [employer] [facility]. provides no warranty or guarantee of the accuracy or completeness of information in this document.
== END | disposition home or self-care (01) ==
LOC: MTRAD 17:13
PROVIDERS: PCP Family Medicine; Referring Provider Family Medicine; Visit Provider Family Medicine
DX: S16.1XXA Strain of muscle, fascia and tendon at neck level, initial encounter (principal)
CPT/HCPCS: 72050

== ENCOUNTER 2025-08-25 14:56 | Outpatient (RCR) | payer BC, SELFPAY ==
--- NOTE | 2025-08-25 15:46 | HP.PTEVAL ---
Patient's Visit Information Visit Information Visit Information: HIGINIO MARTI is a 60 year old F referred to Physical Therapy by Dr. Salena Bhakta MD with a diagnosis of cervical radiculaopthy. Date of Evaluation: 08/25/25 Physical Therapist: Jonathan Arvizu, DPT, OCS, CSCS Visit Plan Plan: No skilld PT required as she has improvd 98% and I have instructed her in activity modificaiton for shoulder, sleeping position for shoulder and neck, UT stretch R neck 30" 5x daily and posture to limit future stress. Pt wishes to do these at home vs more frequent PT. Subjective Subjective: Woke up one morning with R arm pain at shoulder and worsened where she could not lift arm , Could not lift it for 2 days. Taht was 2 weeks ago. Better over the next number of days but still hurt in R nck adn shoulder and got x ray of neeck and has OA. No issues prior to this. No previous problem in shoulder. No numbness or tingling in UE. overall 98 % better. Sleep is Ok. Activities are normal, avoided cleaning for a few days. Doing them now. Basic ADLs all I. 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 No problems now. Hobbies: crafting gardening. No problems crafting. No regualr exercises. Pain R shoulder: Pain Intensity (Out of 10): 0 Pain Intensity Range: 0 and 1 Objective Objective: Walks into PT I, no evidence of pain, trasnfers chair and table I. Good balance and heel toe walking. Full aROM B wrists, elbows, shoulders, scap withonly slight pain end range R shoulder flexion. Tender over supraspinatus R not L. Cervical aROM symmetrical and full rotations to 65, ext to 60 and no pain, some mild tightness R UT. strength is 4/5 in arms throughout without pain in any but not er, flexion aor empty can. - er lag, - drop arm, - HK, - neer, - cervical comrpession. Pt doing vry well today, likely slept wrrong flaring up neck OA or supra tendon. Balance/Special Test Scores Oswestry Neck Score: 3 Rehabilitation Potential Physical Therapy Diagnosis: slight improving pain R shoulder and stiffness in neck. Anticipated Interventions Text: Thank you for the opportunity to evaluate your patient. For Medicare and Medicare HMO plans, please review the plan of care and approve it. It will need to be FAXED BACK to us at [phone] for Medicare purposes. For Medicare only, by signing this I certify the plan of care. Please let me know if there are questions or concerns regarding this plan of care. Physician Signature: Date:
== END 2025-08-25 19:00 | disposition home or self-care (01) ==
LOC: PT 14:56
PROVIDERS: PCP Family Medicine; Referring Provider Family Medicine; Visit Provider Family Medicine
DX: M54.12 Radiculopathy, cervical region (principal)
CPT/HCPCS: 97161